=== PATIENT | male | born 1930 | race Hispanic/Latino ===

== ENCOUNTER 2016-08-13 08:45 | Outpatient (CLI) | payer MEDICARE ==
--- NOTE | 2016-08-14 11:36 | PET Report ---
PET/CT:08/13/16 08:45:00 CLINICAL: Lung cancer restaging. RADIOPHARMACEUTICAL: 13.87mCi F18-FDG. COMPARISON: 01/23/16 PET/CT TECHNIQUE- Following intravenous injection of F-18 FDG and an approximately 60 minute uptake period, CT and PET images from the mid skull to the upper thighs were acquired with the patient in the fasted state. No contrast was administered. The CT protocol used for this PET CT study is designed for attenuation correction and anatomic localization of PET abnormalities. This technical sales engineer CT is not desired to produce and cannot replace, [id number]-wn-[id number]-art diagnostic CT scans with specific imaging protocols for different body parts and indications. Plasma glucose at the time of this test: 102g/dl. The standardized uptake values (SUV) are normalized to patient body weight and indicate the highest activity concentration (SUV max) in a given disease site. FINDINGS: Brain--Physiologic FDG uptake in the visualized regions of the brain. Neck--Physiologic FDG uptake . Chest--Physiologic FDG uptake in mediastinal blood pool and myocardium. Lungs--The previously described lingular lung mass is less well-defined and appears to measure approximately 2.2 x 2.0 cm compared to 2.6 x 2.4 cm on the last exam. Although the mass is less well-defined, there is new extensive FDG uptake throughout the adjacent lung with partial consolidation of the lingula. Pleura/pericardium--No abnormal uptake. Thoracic nodes--No abnormal uptake. Hepatobiliary--No abnormal uptake. Liver background SUV mean, as a reference for comparing FDG studies, is compared to on the last exam. No liver mass. Spleen--No abnormal uptake. Pancreas--No abnormal uptake. Adrenal Glands--No abnormal uptake. Kidneys/Ureters/Bladder--No abnormal uptake. Abdominopelvic Nodes--No abnormal uptake. Bowel/Peritoneum/Mesentery--No abnormal uptake. Pelvic organs--No abnormal uptake. Bones/Soft Tissues--No abnormal uptake. Other findings: IMPRESSION- Negative study.
== END 2016-08-13 08:46 | disposition home or self-care (01) ==
LOC: PET 08:45
PROVIDERS: ATTEND Internal Medicine Hematology & Oncology
DX: C34.92 Malignant neoplasm of unspecified part of left bronchus or lung (principal); R91.8 Other nonspecific abnormal finding of lung field; J90 Pleural effusion, not elsewhere classified
CPT/HCPCS: 78815; 82962; A9552

== ENCOUNTER 2016-11-19 08:14 | Outpatient (CLI) | payer MEDICARE ==
--- NOTE | 2016-11-21 11:22 | PET Report ---
PET/CT:11/19/16 08:14:00 CLINICAL: Lung cancer restaging. RADIOPHARMACEUTICAL: 14.458mCi F18-FDG. COMPARISON: 08/13/16 PET/CT TECHNIQUE- Following intravenous injection of F-18 FDG and an approximately 60 minute uptake period, CT and PET images from the mid skull to the upper thighs were acquired with the patient in the fasted state. No contrast was administered. The CT protocol used for this PET CT study is designed for attenuation correction and anatomic localization of PET abnormalities. This producer assistant CT is not desired to produce and cannot replace, pofvl-oc-umc-art diagnostic CT scans with specific imaging protocols for different body parts and indications. Plasma glucose at the time of this test: 102g/dl. The standardized uptake values (SUV) are normalized to patient body weight and indicate the highest activity concentration (SUV max) in a given disease site. FINDINGS: Brain--Physiologic FDG uptake in the visualized regions of the brain. Neck--Physiologic FDG uptake . Chest--Physiologic FDG uptake in mediastinal blood pool and myocardium. Lungs--The previously described lingular lung mass has resolved. Persistent lingular consolidation with air bronchograms. FDG is significantly reduced in the left upper lobe with SUV 3.4 compared to 4.1 on the last exam. Pleura/pericardium--No abnormal uptake. Thoracic nodes--Resolution of FDG uptake in mediastinal lymph nodes and most hilar lymph nodes. Persistent FDG uptake in a right hilar lymph node with SUV 3.0. Hepatobiliary--No abnormal uptake. Liver background SUV mean, as a reference for comparing FDG studies, is 3.0 and is unchanged in the prior exam. No liver mass. Spleen--No abnormal uptake. Pancreas--No abnormal uptake. Adrenal Glands--No abnormal uptake. Kidneys/Ureters/Bladder--No abnormal uptake. Abdominopelvic Nodes--No abnormal uptake. Bowel/Peritoneum/Mesentery--No abnormal uptake. Pelvic organs--No abnormal uptake. Bones/Soft Tissues--No abnormal uptake. IMPRESSION-Partial response to treatment with significantly reduced FDG uptake in the left lung, resolution of lingular mass and significant reduction in FDG uptake in thoracic lymph nodes.
== END 2016-11-19 08:15 | disposition home or self-care (01) ==
LOC: PET 08:14
PROVIDERS: ATTEND Radiology Radiation Oncology
DX: C34.2 Malignant neoplasm of middle lobe, bronchus or lung (principal)
CPT/HCPCS: 78815; 82962; A9552